=== PATIENT | female | born 1990 | race Two or more races ===

== ENCOUNTER 2024-12-14 08:28 | Outpatient (AMB) | payer MEDICAID, SELFPAY ==
--- NOTE | 2024-12-14 08:34 | AMB.GYNCLNOT ---
Vital Signs 12/14/24 08:37 Height 1.63 m Height Method Stated Weight 84.595 kg Weight Measurement Method Standing Scale BMI 32.0 BP 123/77 Blood Pressure Source Automatic Cuff Blood Pressure Location Right Upper Arm Position Sitting Respiration 18 Pulse 66 Pulse Source Monitor Temp 98.2 F Temp Source Temporal Artery Scan Pulse Oximetry (%) 98 Oxygen Delivery Method Room Air Allergies/Home Meds Allergies & Medications Allergies NKA* Allergy (Uncoded 12/14/24 08:39) Medication Reconciliation No Known Home Medications 12/14/24 [History Confirmed 12/14/24] Intake Visit Data Collection New Patient or Established: New Patient (never been to [facility]) Reason for Visit:: REFERRAL Seen by Clinical Staff ONLY (RN/MA): No Manager Parking Required: Yes Manager Parking's name/title: POLO DORSEY MA Do You Feel Safe at Home: Yes Authorities Contacted: N/A PCP or OBGYN visit in last 3 months: No Hx Now: No Are you currently on any form of Control: No Last menstrual period: 11/23/24 Pain Present Currently: No Pain Scale Used: Nair-Miller/Numerical Pain scale:: 0 Smoking Status Smoking Status: Never smoker Immunizations Flu Vaccine in the Last 12 Months: Yes Flu Vaccine Exclusion Criteria: Already 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 1. Little interest or pleasure in doing things: not at all 2. Feeling down, depressed, or hopeless: not at all Total score: 0 PHQ-9 3. Trouble falling or staying asleep, or sleeping too much: Not at all 4. Feeling tired or having little energy: Not at all 5. Poor appetite or overeating: Not at all 6. Feeling bad about yourself - or that you are a failure or have let yourself or your family down: Not at all 7. Trouble concentrating on things, such as reading the newspaper or watching television: Not at all 8. Moving or speaking so slowly that other people could have noticed? - Or the opposite - being so fidgety or restless that you have been moving around a lot more than usual: not at all 9. Thoughts that you would be better off or of hurting yourself in some way: Not at all Total score: 0 If you checked off any problems, how difficult have these problems made it for you to do your work, take care of things at home, or get along with other people?: not difficult at all Source: Developed by Drs. Fahad Ibrahim, Liz Gu, Abdifatah Mahmood and colleagues, with an educational torie from [employer]. Depression screen completed yes Social History Living Situation History Marital Status: Life Partner Lives With: Significant Other Housing: House Tobacco History Smoking Status: Never smoker Second Hand Smoke Exposure: No Alcohol History Alcohol Intake: Never Domestic Abuse History Do You Feel Safe at Home: Yes History of Present Illness HPI Narrative Referral from PCP for uterine fibroids, desires fibroid removal, pain, heavy periods, skin breakouts during menstruation Lucretia Garrett is a 34-year-old nulligravid female presenting on referral from her primary care provider for management of uterine leiomyomas. She reports current symptoms of pain, nausea, and heavy periods, with breakouts occurring during menstruation. The patient has a known history of uterine fibroids and was previously seen by an vp scientific in [place], with her last appointment approximately one year ago in December 2019. She was dissatisfied with the care received there and is seeking fibroid removal. Previous providers gave conflicting recommendations, with one initially agreeing to remove the fibroids and another subsequently declining to perform the procedure, stating that hysterectomy would be necessary since she has never had children. The patient expresses interest in future and desires fibroid removal to preserve fertility. She denies any chronic illness and is not currently taking any medications. Her last Pap smear was performed in October 2023, and she reports having one male partner with no concerns for sexually transmitted diseases. Medical History: - Leiomyomas (uterine fibroids) with largest measuring 6.9 centimeters on ultrasound from November 2019 - Obesity - Frequency of urination - Dysuria - Pelvic and perineal pain Obstetric History: - GTPAL: G0 T0 L0 - Not currently - No prior pregnancies Social History: - Relationship Status: One male partner Diagnostic Test Results and Labs: - Pelvic ultrasound (12-03-2019): Multiple heterogeneous uterine masses with largest measuring 6.9 cm and one in lower uterine segment measuring 1.5 cm. Uterus measures 13.4 x 7.4 x 9.7 cm including cervix. Endometrial stripe 5 mm. Right ovary 3.7 cm, left ovary obscured. Impression: multiple leiomyomas, several follicles in right ovary. Exam General General Appearance: alert, in no apparent distress and healthy appearing Head Head exam: atraumatic Neck Neck exam: Present normal inspection and trachea midline Chest Chest inspection: Present normal inspection and symmetric chest wall rise External exam: Present normal external exam; Absent tenderness Neuro Neurological exam: Present oriented X3 Psych Psychiatric exam: Present normal affect and normal mood Office Procedures OBC Clinic LOC & Office Proc's Nursing/Assessment Patient Status: Initial/New Patient OB Clinic Nursing Assessment: Medication Reconciliation, Update PMH in EMR and Vital Signs OB Clinic Coordination of Care: Complex Care and Chronic Disease 1-5, Education Complex Pt/Fam, Consent,records obtained, informed consent, Lab and Imaging orders, Results/Orders obtained and Staff clarify orders New Patient Charge New Patient Point Assignment: 1109 New Patient Point Charge: CONSUMER SERVICES CONSULTANT Level 3 ([id number]) Assessment & Plan Diagnosis / Problem List (1) Intramural leiomyoma of uterus: Status: Acute Plan Uterine leiomyomas Assessment: Patient has multiple uterine leiomyomas with the largest measuring 6.9 cm based on pelvic ultrasound from November 2019. The large fibroid is occupying significant uterine space and would prevent from progressing normally. There is also a smaller 1.5 cm fibroid in the lower uterine segment. Current symptoms include pain, nausea, heavy menstrual periods, and breakouts during menstruation. The patient desires future and myomectomy with uterine repair is feasible to preserve fertility. Plan: - Order fresh pelvic ultrasound to assess current fibroid size - Check insurance authorization requirements for surgery - Plan myomectomy via open abdominal approach due to large fibroid size - Remove large 6.9 cm fibroid and repair uterus - Consider leaving small 1.5 cm lower uterine segment fibroid if removal not technically feasible - Environmental Issues Instructor patient that 6 months healing time required before attempting - Inform patient that future deliveries must be via section only - Schedule follow-up appointment in one month to review ultrasound results and proceed with surgical planning Desire for future Assessment: Patient is nulligravid and desires future . Current large uterine fibroid prevents normal progression due to space occupation within the uterus. Fertility preservation is a priority in treatment planning. Plan: - Proceed with myomectomy to preserve uterine function and enable future - Allow 6 months for complete uterine healing before attempting conception - Environmental Issues Instructor regarding mandatory delivery for any future pregnancies following myomectomy
[2024-12-14 08:37] VITALS: BP 123/77; PULSE 66; RESP 18; TEMP 36.8; O2SAT 98; BMI 32.0
== END 2024-12-14 09:58 | disposition home or self-care (01) ==
PROVIDERS: Supervising Provider Obstetrics & Gynecology; Visit Provider Obstetrics & Gynecology
DX: D25.1 Intramural leiomyoma of uterus (principal)
CPT/HCPCS: 99203; G0463

== ENCOUNTER → 2025-01-12 | Outpatient (CLI) | payer MEDICAID, SELFPAY ==
--- NOTE | 2025-01-12 16:09 | XR_ITS ---
Examination: Pelvic ultrasound, transabdominal, complete Technique: Transabdominal ultrasound of the pelvis performed using grayscale imaging Date and time of exam: January 12, 2025, 1638 hours INDICATIONS: History pelvic pain weeks FINDINGS: Uterus 18.7 cm, multiple solid lesions, the largest in the body of the uterus 10.5 x 8.5 x 8.0 cm Right ovary obscured by bowel gas Left ovary 4.1 x 2.4 cm arterial flow No fluid in the cul-de-sac IMPRESSION: Multiple uterine masses, the largest 10.5 x 8.4 x 8.0 cm, recommend transvaginal pelvic sonography follow-up
== END | disposition home or self-care (01) ==
LOC: SDIM 15:55
PROVIDERS: Referring Provider Obstetrics & Gynecology; Visit Provider Obstetrics & Gynecology
DX: R19.09 Other intra-abdominal and pelvic swelling, mass and lump (principal)
CPT/HCPCS: 76856

== ENCOUNTER 2025-01-17 11:04 | Outpatient (AMB) | payer MEDICAID, SELFPAY ==
[2025-01-17 11:12] VITALS: BP 130/84; PULSE 76; RESP 18; TEMP 36.2; O2SAT 98; BMI 31.8
--- NOTE | 2025-01-17 11:12 | GYNCLNT_ITS ---
Vital Signs 01/17/25 11:12 Height 1.63 m Height Method Stated Weight 84.482 kg Weight Measurement Method Standing Scale BMI 31.8 BP 130/84 Blood Pressure Source Automatic Cuff Blood Pressure Location Left Upper Arm Position Sitting Respiration 18 Pulse 76 Pulse Source Monitor Temp 97.2 F Temp Source Oral Pulse Oximetry (%) 98 Oxygen Delivery Method Room Air Allergies/Home Meds Allergies & Medications Allergies NKA* Allergy (Uncoded 01/17/25 11:15) Medication Reconciliation No Known Home Medications 12/14/24 [History Confirmed 01/17/25] Intake Visit Data Collection New Patient or Established: Established Patient (seen at [facility] within 3 years) 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 Seen by Clinical Staff ONLY (RN/MA): No Visual Lead Required: Yes Visual Lead's name/title: POLO DORSEY MA Do You Feel Safe at Home: Yes Authorities Contacted: N/A PCP or OBGYN visit in last 3 months: Yes Date of Last PCP or OBGYN visit: 12/14/24 Hx Now: No Are you currently on any form of Control: No Last menstrual period: 01/13/25 Pain Present Currently: No Pain Scale Used: Nair-Miller/Numerical Pain scale:: 0 Smoking Status Smoking Status: Never smoker Immunizations Flu Vaccine in the Last 12 Months: Yes Flu Vaccine Exclusion Criteria: Already Received 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 1. Little interest or pleasure in doing things: not at all 2. Feeling down, depressed, or hopeless: not at all Total score: 0 PHQ-9 3. Trouble falling or staying asleep, or sleeping too much: Not at all 4. Feeling tired or having little energy: Not at all 5. Poor appetite or overeating: Not at all 6. Feeling bad about yourself - or that you are a failure or have let yourself or your family down: Not at all 7. Trouble concentrating on things, such as reading the newspaper or watching television: Not at all 8. Moving or speaking so slowly that other people could have noticed? - Or the opposite - being so fidgety or restless that you have been moving around a lot more than usual: not at all 9. Thoughts that you would be better off or of hurting yourself in some way: Not at all Total score: 0 If you checked off any problems, how difficult have these problems made it for you to do your work, take care of things at home, or get along with other people?: not difficult at all Source: Developed by Drs. Fahad Ibrahim, Liz Gu, Abdifatah Mahmood and colleagues, with an educational torie from [employer]. Depression screen completed yes Social History Living Situation History Lives With: Significant Other Housing: House Tobacco History Smoking Status: Never smoker Second Hand Smoke Exposure: No Alcohol History Alcohol Intake: Never Domestic Abuse History Do You Feel Safe at Home: Yes History of Present Illness HPI Narrative Lucretia Garrett returns for follow-up regarding her uterine fibroids. She had an ultrasound performed last Friday as previously ordered to evaluate her fibroids in preparation for planned surgical intervention. The patient continues to desire proceeding with fibroid removal as previously discussed. She understands the surgical plan and post-operative requirements including the need to wait 6 months to a year before attempting . 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 Exam General General Appearance: alert, in no apparent distress and healthy appearing Head Head exam: atraumatic Neck Neck exam: Present normal inspection and trachea midline Chest Chest inspection: Present normal inspection and symmetric chest wall rise External exam: Present normal external exam; Absent tenderness Neuro Neurological exam: Present oriented X3 Psych Psychiatric exam: Present normal affect and normal mood Office Procedures OBC Clinic LOC & Office Proc's Nursing/Assessment Patient Status: Established Patient OB Clinic Nursing Assessment: Medication Reconciliation, Update PMH in EMR and Vital Signs OB Clinic Coordination of Care: Consent,records obtained, informed consent, Education Simp Pt/Fam, Lab and Imaging orders, Results/Orders obtained and Staff clarify orders Established Patient Charge Established Patient Point Assignment: 80 Established Patient Point Charge: EP Level 3 (80-115) Assessment & Plan Diagnosis / Problem List (1) Intramural leiomyoma of uterus: Status: Acute Plan Multiple Uterine Fibroids: - Multiple uterine fibroids confirmed by ultrasound imaging with largest fibroid measuring 10.5 centimeters. - Very large and multiple fibroids present with potential for additional fibroids not visualized on imaging. - Complete visualization often limited with imaging studies. Plan: - Proceed with surgical removal of fibroids via myomectomy. - Surgical approach will be similar to section incision. - Remove all fibroids that can be safely accessed during surgery. - Repair uterus following fibroid removal. - Authorization referral has been created and submitted for insurance approval. - Schedule surgery once insurance approval is obtained. - Patient will be contacted when approval is received. - Postoperative hospitalization for one night. - Wait 6 months to one year before attempting following surgery.
== END 2025-01-17 12:02 | disposition home or self-care (01) ==
LOC: HODSOBC 11:04
PROVIDERS: Supervising Provider Obstetrics & Gynecology; Visit Provider Obstetrics & Gynecology
DX: D25.1 Intramural leiomyoma of uterus (principal)
CPT/HCPCS: 99213; G0463

== ENCOUNTER 2025-02-02 07:42 | Emergency (ER) | payer MEDICAID, SELFPAY ==
--- NOTE | 2025-02-02 07:54 | XR_ITS ---
Examination: Transvaginal ultrasound of the pelvis, complete Technique: Transvaginal sonographic images pelvis performed using fernandez scale imaging Exam date and time: February 02, 2025, 0859 hours INDICATIONS: Pelvic pain beginning 1 year ago, worse the last 2 months, history multiple solid uterine lesions, the largest in the body of the uterus 10.5 cm on ultrasound January 12, 2025 FINDINGS: Uterus 10.7 cm Multiple areas of uterine fibroid degeneration, the largest in the uterine fundus 8.7 x 7.4 x 8.4 cm, 3.4 x 3.4 x 3.4 cm Ovaries obscured by bowel gas IMPRESSION: Multiple areas of uterine fibroid degeneration as above.
[2025-02-02 07:55] VITALS: BP 120/79; PULSE 116; RESP 23; TEMP 36.4; O2SAT 100; BMI 30.9
--- NOTE | 2025-02-02 08:13 | PD.EDABDPN ---
ED Abdominal Pain RME/HPI General Chief Complaint: Abdominal Pain Stated complaint: VOMITING, UTEROUS PAIN 9/10 Time seen by provider: 02/02/25 08:02 Arrival date/time: 02/02/25 07:42 RME / HPI RME / HPI narrative: 34 year old female with history of multiple uterine fibroids presents to the ED for evaluation of pelvic abdominal pain today. Described as cramping aching in sensation and rating 10/10 in severity. Accompanied by nausea, vomiting, feeling shaky, and an itching burning sensation throughout her body she attributes to the pain. Reportedly had consulted with OBGYN Dr. Cheney and are planning on surgical removal of the fibroids. Patient states her last menses began 01/13/2025 and ended on 01/29/2025. Related Data Previous Rx's ?Medication ?Instructions ?Recorded ibuprofen 600 mg tablet 600 mg PO Q6H PRN pain #30 tabs 02/02/25 Allergies Allergy/AdvReac Type Severity Reaction Status Date / Time No Known Allergies Allergy Verified 02/02/25 07:48 Review of Systems Review of Systems Systems Reviewed: All systems reviewed, normal except as documented Past Medical History Social History SMOKING STATUS: Never smoker SECOND HAND EXPOSURE: No ED Exam Narrative Physical exam: GENERAL APPEARANCE: alert and oriented x 4, well-developed, well-nourished, mildly diaphoretic, tremulous HEENT: Normocephalic, atraumatic; pupils equal, round, reactive to light; EOMI; mucous membranes pink, moist; oropharynx clear NECK: Supple LUNGS: CTABL; no wheezes, no rales, no rhonchi HEART: Regular rate, regular rhythm; normal S1, S2; no murmurs ABDOMEN: non distended; normal BS; soft, no tenderness, no guarding, no rebound; no masses, no organomegaly, no hernia EXTREMITIES: atraumatic; no edema NEUROLOGIC: awake; alert and oriented x4; cranial nerves II-XII grossly intact; no focal sensory or motor deficits PSYCHIATRIC: appropriate mood and affect SKIN: warm, diaphoretic, normal color; no rashes Course Quality Measures none Orders Category Date Time Status CT Screening NOW Care 02/02/25 08:59 Active Insert IV NOW Care 02/02/25 07:[address] abdomen pelvis w con Stat Exams 02/02/25 08:59 Completed US transvaginal Stat Exams 02/02/25 07:54 Completed Beta HCG,Quantitative Stat Lab 02/02/25 08:10 Completed CBC Stat Lab 02/02/25 08:10 Completed Comprehensive Metabolic Panel Stat Lab 02/02/25 08:10 Completed HCG Qualitative,Urine Stat Lab 02/02/25 10:05 Completed Lipase Stat Lab 02/02/25 08:10 Completed UA, C/S IF [Urinalysis, C/S if Indicated] Stat Lab 02/02/25 10:05 Completed DiphenhydrAMINE INJ [Benadryl Inj] Med 02/02/25 07:55 Discontinued 25 mg IVP X1 ONE Famotidine Inj [Pepcid Inj] Med 02/02/25 07:55 Discontinued 20 mg IVP X1 ONE Ketorolac Inj [Toradol Inj] Med 02/02/25 09:24 Discontinued 15 mg IVP X1 ONE MethylPREDNISolone.* [SoluMEDROL Inj] Med 02/02/25 07:55 Discontinued 125 mg IVP X1 ONE Ondansetron Inj [Zofran Inj] Med 02/02/25 07:55 Discontinued 4 mg IVP X1 ONE Sodium Chloride 0.9% 1000 ml [Ns] 1,000 ml Med 02/02/25 07:54 Discontinued IV 999 mls/hr Vital Signs Vital signs: Vital Signs Temperature 97.6 F 02/02/25 07:55 Pulse Rate 116 H 02/02/25 07:55 Respiratory Rate 23 H 02/02/25 07:55 Blood Pressure 120/79 02/02/25 07:55 Pulse Oximetry (%) 100 02/02/25 07:55 Oxygen Delivery Method Room Air 02/02/25 07:55 Pulse ox is 100% on room air which is adequate. Abdominal Pain MDM MDM Narrative MDM Narrative:: IStacy am scribing for and in the presence of Dr. Zambrano. Through ED course patient received Zofran, Famotidine, Benadryl, SoluMEDROL. and IV fluids. On reassessment, the patient reports feeling much improved. We reviewed all the results, analysis, and treatment plans. Patient is amenable to discharge. Strict return precautions were outlined. Patient data External records reviewed:: [facility] previous records Clinical information provided by:: patient Social determinants that could affect healthcare access:: none Patient has the following chronic illnesses:: Uterine fibroids How is presenting disease/condition affected by chronic disease/condition?: exacerbated by Evaluation data The following diagnostics were reviewed and interpreted by me:: lab results and radiology exam(s) Lab and/or radiology exams considered but not ordered:: None Interpretation Summary: Ordering Physician: Jakub Woo NP, NP Date of Service: 02/02/25 Procedure(s): US transvaginal Accession Number(s): [id number] cc: Amna MALAVE)Jakub NP; Aman Andres MD; NO PRIMARY/FAMILY,PHYSICIAN~ Examination: Transvaginal ultrasound of the pelvis, complete Technique: Transvaginal sonographic images pelvis performed using fernandez scale imaging Exam date and time: February 02, 2025, 0859 hours INDICATIONS: Pelvic pain beginning 1 year ago, worse the last 2 months, history multiple solid uterine lesions, the largest in the body of the uterus 10.5 cm on ultrasound January 12, 2025 FINDINGS: Uterus 10.7 cm Multiple areas of uterine fibroid degeneration, the largest in the uterine fundus 8.7 x 7.4 x 8.4 cm, 3.4 x 3.4 x 3.4 cm Ovaries obscured by bowel gas IMPRESSION: Multiple areas of uterine fibroid degeneration as above. Dictated By: Aman Andres MD Signed By: <Electronically signed by Aman Andres MD in [place]> 02/02/25 0940 Ordering Physician: Brenda Zambrano MD Date of Service: 02/02/25 Procedure(s): CT abdomen pelvis w con Accession Number(s): [id number] cc: Aman Andres MD; NO PRIMARY/FAMILY,PHYSICIAN; Brenda Zambrano MD~ Examination: CT abdomen with intravenous contrast CT pelvis with intravenous contrast 2-D coronal reconstructions 2-D sagittal reconstructions Date and time of exam: January, 1015 hours INDICATIONS: Lower abdominal pain with nausea vomiting today. CTDI: vol (mGy) 9.32 DLP: (mGycm) 539 Technique: Multiple axial sections of the abdomen and pelvis have been obtained. 64 slice high-resolution scanner used. 3 mm axial sections have been obtained, post intravenous injection 60 cc [id number] 2-D sagittal, coronal reconstructions obtained. Low dose protocols were performed. One or more of the following dose reduction techniques were used; automated exposure control, adjustment of the mA and/or KV according to patient size, use of iterative reconstruction technique. Findings: No focal liver or splenic lesion No gallstones No pancreatic or adrenal mass Mild right hydronephrosis Normal appendix No bowel obstruction Marked abnormal enlargement of the uterus including the fundus, but also the cervix, with a 9 cm mass No adnexal mass Urinary bladder intact Mild osteopenia IMPRESSION: Normal appendix Abnormal uterus, uterine fundal and lower uterine segment, cervical masses Recommend follow-up transvaginal pelvic sonography to complement the transabdominal pelvic sonography today to exclude mass in the cervix at this time Dictated By: Aman Andres MD Signed By: <Electronically signed by Aman Andres MD in [place]> 02/02/25 1036 Medications / Prescriptions Medications or Prescriptions considered but not ordered:: None Medication administrations:: Medication Administration History Discontinued Medications Diphenhydramine HCl (Diphenhydramine Inj 50 Mg/Ml Vial) 25 mg IVP X1 ONE Stop: 02/02/25 07:56 Last Admin: 02/02/25 08:40 Dose: 25 mg Documented By: ELLE Famotidine (Famotidine Inj 10 Mg/Ml Vial 2 Ml) 20 mg IVP X1 ONE Stop: 02/02/25 07:56 Last Admin: 02/02/25 08:38 Dose: 20 mg Documented By: ELLE Sodium Chloride (Ns) 1,000 mls @ 999 mls/hr IV .Q1H1M ONE Stop: 02/02/25 08:54 Last Admin: 02/02/25 08:40 Dose: 999 mls/hr Documented By: ELLE Ketorolac Tromethamine (Ketorolac Inj 30 Mg/Ml Vial) 15 mg IVP X1 ONE Stop: 02/02/25 09:25 Last Admin: 02/02/25 10:31 Dose: Not Given Documented By: DB Non-Admin Reason: Change of Condition Methylprednisolone Sodium Succinate (Methylprednisolone Sod Succ 62.5 Mg/Ml 2ml Vial) 125 mg IVP X1 ONE Stop: 02/02/25 07:56 Last Admin: 02/02/25 08:40 Dose: 125 mg Documented By: DB Ondansetron HCl (Ondansetron Inj 2 Mg/Ml Inj 2 Ml) 4 mg IVP X1 ONE; Protocol Stop: 02/02/25 07:56 Last Admin: 02/02/25 08:36 Dose: 4 mg Documented By: DB See above Consultations Consultation(s) initiated? (list below): No Diagnosis Differential diagnosis abdominal pain: abdominal pain and other (Fibroids, pelvic pain) Most likely diagnosis given after review of the tests above:: Uterine fibroid Pelvic pain Admission Indicated Admission indicated?: not indicated Admission Request Was there a request for admission?: No Disposition Plan Disposition Plan: Discharge Discharge Attestation Discharge Attestation: The patient and all family members were given an opportunity to ask questions and understood the discharge instructions. Discharge instructions specifically effects, indications for sooner follow up or return to the emergency department, and the expected course of current diagnosis. Patient condition: Stable Discharge Plan Plan Patient Disposition: HOME (Self Care) Prescriptions/Referrals Prescriptions/Med Rec: New ibuprofen 600 mg tablet 600 mg PO Q6H PRN (Reason: pain) Qty: 30 0RF Referrals: No Primary/Family,Physician [Primary Care Provider] - In 1 week Problem List Clinical Impression: Uterine fibroid, Pelvic pain Patient/Caregiver Discharge Instructions Education Materials: ED Uterine Fibroids Additional Instructions: Follow up with your school health assistant for further management. Call office for appointment. Print Language: Filipino Stand Alone Forms: [employer] Award Info., Patient Portal Info Letter
[2025-02-02] MEDS: ONDANSETRON INJ 2 MG/ML INJ 2 ML 4 MG IVP (08:36)
[2025-02-02] MEDS: FAMOTIDINE INJ 10 MG/ML VIAL 2 ML 20 MG IVP (08:38)
[2025-02-02 08:39] LABS: Basophils # (Auto) 0.0 Thou/mm3 (0.0-0.2); Basophils % (Auto) 0 % (0-2.5); Eosinophils # (Auto) 0.2 Thou/mm3 (0.0-0.5); Eosinophils % (Auto) 1 % (0-10); Hematocrit 45.3 % (36.0-46.0); Hemoglobin 14.6 g/dL (12.0-16.0); Immature Granulocytes Auto 0.07 Thou/mm3 (0.00-0.00); Lymphocytes # (Auto) 2.5 Thou/mm3 (1.0-4.8); Lymphocytes % (Auto) 20 % (10-50); Mean Corpuscular HGB Conc 32.2 g/dl (31.0-37.0); Mean Corpuscular Hemoglobin 27.2 pg (25.0-35.0); Mean Corpuscular Volume 84 fL (80-100); Monocytes # (Auto) 0.4 Thou/mm3 (0.0-0.8); Monocytes % (Auto) 4 % (0-12); Neutrophils # (Auto) 9.3 Thou/mm3 (1.8-7.7); Neutrophils % (Auto) 74 % (37-80); Nucleated Red Blood Cell # 0.00 Thou/mm3 (0.00-0.00); Nucleated Red Blood Cell % 0 /100 WBC (0); Platelet Count 555 Thou/mm3 (140-440); RDW Standard Deviation 43.0 fL (36.4-46.3); Red Blood Count 5.37 Miln/mm3 (4.00-5.20); White Blood Count 12.5 Thou/mm3 (3.6-11.0)
[2025-02-02] MEDS: SODIUM CHLORIDE 0.9% 1000 ML 1,000 ML 999 ML IV (08:40)
[2025-02-02] MEDS: MethylPREDNISolone SOD SUCC 62.5 MG/ML 2ML VIAL 125 MG IVP (08:40)
[2025-02-02 08:46] LABS: Alanine Aminotransferase 15 U/L (10-49); Albumin, Serum 4.7 gm/dL (3.5-5.0); Albumin/Globulin Ratio 1.4 (1.2-2.2); Alkaline Phosphatase 71 U/L (46-116); Anion Gap 11 (7-16); Aspartate Amino Transferase 18 U/L (0-34); BUN/Creatinine Ratio 11 Ratio (12-20); Bilirubin,Total 0.3 mg/dL (0.3-1.2); Blood Urea Nitrogen 10 mg/dL (9-23); Calcium 9.4 mg/dL (8.3-10.6); Calcium (Corrected) 9.4 mg/dL (8.5-10.1); Carbon Dioxide 22.8 mMol/L (20.0-31.0); Chloride 103 mMol/L (98-107); Creatinine (Component) 0.9 mg/dL (0.6-1.3); Estimated Creatinine Clearance 89.3 mL/min (>60); Globulin 3.4 gm/dL (2.3-3.5); Glucose 144 mg/dL (74-106); Lipase 37 U/L (12-53); Osmolality,Calculated 275 (275-295); Potassium 4.2 mMol/L (3.4-5.1); Sodium 137 mMol/L (136-145); Total Protein 8.1 gm/dL (5.7-8.2); eGFR > 60 See Note
--- NOTE | 2025-02-02 08:59 | XR_ITS ---
Examination: CT abdomen with intravenous contrast CT pelvis with intravenous contrast 2-D coronal reconstructions 2-D sagittal reconstructions Date and time of exam: January, 1015 hours INDICATIONS: Lower abdominal pain with nausea vomiting today. CTDI: vol (mGy) 9.32 DLP: (mGycm) 539 Technique: Multiple axial sections of the abdomen and pelvis have been obtained. 64 slice high-resolution scanner used. 3 mm axial sections have been obtained, post intravenous injection 60 cc [id number] 2-D sagittal, coronal reconstructions obtained. Low dose protocols were performed. One or more of the following dose reduction techniques were used; automated exposure control, adjustment of the mA and/or KV according to patient size, use of iterative reconstruction technique. Findings: No focal liver or splenic lesion No gallstones No pancreatic or adrenal mass Mild right hydronephrosis Normal appendix No bowel obstruction Marked abnormal enlargement of the uterus including the fundus, but also the cervix, with a 9 cm mass No adnexal mass Urinary bladder intact Mild osteopenia IMPRESSION: Normal appendix Abnormal uterus, uterine fundal and lower uterine segment, cervical masses Recommend follow-up transvaginal pelvic sonography to complement the transabdominal pelvic sonography today to exclude mass in the cervix at this time
[2025-02-02 09:55] LABS: Beta HCG,Quantitative < 1 mIU/mL (<5.0)
[2025-02-02 10:16] LABS: Collection Type, Urine Clean Catch
[2025-02-02 10:19] LABS: HCG Qualitative,Urine Negative
[2025-02-02 10:20] LABS: Bilirubin,Urine Negative (Negative); Blood,Urine Negative (Negative); Clarity,Urine Clear (Clear/Hazy); Color,Urine Colorless (Lt Yel-Yel); Culture Indicated,Urine Not Indicated; Glucose, Urine Negative (Negative); Ketones,Urine Negative (Negative); Leukocyte Esterase,Urine Negative (Negative); Nitrite,Urine Negative (Negative); PH,Urine 6.5 (5.0-7.0); Protein,Urine Negative (Neg - Trace); RBC,Urine < 1 /hpf (0-3); Specific Gravity,Urine 1.007 (1.001-1.035); Squamous Epithelial Cell,Urine 2 /hpf (0-5); Urobilinogen,Urine Negative mg/dL (0.0-1.0); WBC,Urine 1 /hpf (0-5)
[2025-02-02] MEDS: KETOROLAC INJ 30 MG/ML VIAL 15 MG IVP (11:29)
[2025-02-02 11:54] VITALS: BP 117/72; PULSE 74; RESP 16; TEMP 36.8; O2SAT 97
== END 2025-02-02 11:56 | disposition home or self-care (01) ==
PROVIDERS: Nurse Practitioner Primary Care; Emergency Provider Emergency Medicine
DX: D25.9 Leiomyoma of uterus, unspecified (principal); R11.2 Nausea with vomiting, unspecified
CPT/HCPCS: 36415; 74177; 76830; 80053; 81001; 81025; 83690; 84702; 85025; 96361; 96374; 96375; 99284; A4649; J1200; J1885; J2405; J2919; J3490; J7030; Q9967